=== PATIENT | female | born 1960 | race Caucasian/White ===

== ENCOUNTER → 2017-02-21 | Outpatient (CLI) | payer BC ==
--- NOTE | 2017-02-22 09:43 | RAD ---
EXAM DESCRIPTION: Chest,2 Views CLINICAL HISTORY: ACUTE EXACERBATION OF CHRONIC OBSTRUCTIVE AIRWAYS DISEASE COMPARISON: None available FINDINGS: The cardiomediastinal silhouette is unremarkable. There is mild subsegmental atelectasis or scarring in the left lung base. No airspace consolidation or pleural effusion is seen. The bronchovascular markings are within normal limits, and the lungs are not hyperinflated. There is no pneumothorax or acute fracture. IMPRESSION: No acute findings. Electronically signed by: Fredo Kenney MD 02/22/2017 9:44 AM CDT Workstation: [id number]
== END | disposition home or self-care (01) ==
LOC: YCFC.O 10:03
PROVIDERS: ATTEND Nurse Practitioner Family
DX: J44.1 Chronic obstructive pulmonary disease with (acute) exacerbation (principal); I50.9 Heart failure, unspecified

== ENCOUNTER → 2017-04-04 | Outpatient (CLI) | payer BC | LOC: SL 12:00 | PROVIDERS: ATTEND Nurse Practitioner Family | DX: G47.30 Sleep apnea, unspecified (principal) ==

== ENCOUNTER → 2017-04-10 | Outpatient (CLI) | payer BC ==
[~2017-04-10] MED LIST: ALBUTEROL SULFATE 2.5 MG/3 ML VIAL NEB ONE
== END ==
LOC: RESP 14:10
PROVIDERS: ATTEND Nurse Practitioner Family
DX: J44.9 Chronic obstructive pulmonary disease, unspecified (principal)
CPT/HCPCS: 94060; J7611

== ENCOUNTER → 2018-04-01 | Outpatient (CLI) | payer BC | LOC: LAB.O 17:01 | PROVIDERS: ATTEND Nurse Practitioner Family | DX: J44.1 Chronic obstructive pulmonary disease with (acute) exacerbation (principal); I50.9 Heart failure, unspecified ==

== ENCOUNTER 2019-04-18 11:23 | Emergency (ER) | payer BC ==
[2019-04-18] MEDS ORDERED: IPRATROPIUM/ALBUTEROL 3 ML VIAL NEB ONE (11:35)
--- NOTE | 2019-04-18 12:36 | RAD ---
EXAM: XR Chest, 2 Views CLINICAL HISTORY: 58 years old and is Female; shortness of breath TECHNIQUE: Frontal and lateral views of the chest. COMPARISON: 02/21/2017 FINDINGS: Limitations: None. Lungs: Chronic obstructive changes present with stable scarring. Pleural space: Unremarkable. No pneumothorax. Heart: Stable prominent cardiac shadow. Mediastinum: Unremarkable. Bones/joints: Unremarkable. IMPRESSION: Stable chronic changes. Electronically signed by: Sruthi Harley MD 04/18/2019 12:34 PM CDT
[2019-04-18] MEDS ORDERED: SODIUM CHLORIDE 0.9% 1000ML 1,000 ML IVS ONE (12:57)
--- NOTE | 2019-04-18 14:22 | CT ---
EXAM DESCRIPTION: CTA Chest CLINICAL HISTORY: 58 years Female sob, elevated d-dimer COMPARISON: None TECHNIQUE: Intravenous contrast enhanced axial scans of the chest were obtained. Sagittal and coronal and oblique reformatted images were performed, along with 3-D rotating MIP images. There are scattered scanning and reconstruction artifacts. This exam was performed according to our departmental dose-optimization program, which includes automated exposure control, adjustment of the mA and/or kV according to patient size and/or use of iterative reconstruction technique. FINDINGS: There is fairly good opacification of the pulmonary arterial system, although small peripheral branches are suboptimally evaluated for technical reasons. No sizable filling defects suggesting emboli are seen within major pulmonary arterial branches. There are calcifications in the thoracic aorta, without evidence of focal aneurysm or dissection. Possible coronary artery calcifications. Small to marginal size nonspecific mediastinal and right hilar lymph nodes are visualized, without evidence of significant appearing lymph node enlargement or mass. There is slight pleural thickening bilaterally and minimal linear subsegmental atelectasis or scarring. No evidence of major consolidation, pleural effusion, or pneumothorax. Note is made of greater than 50% anterior compression deformity of the body of T7. This appears to have also been present on a previous chest radiograph dated February 21, 2017. IMPRESSION: No finding suspicious for pulmonary emboli. Slightly technically limited study. Please see other comments above. Electronically signed by: Vasile Jones MD 04/18/2019 2:20 PM CDT
[2019-04-18 14:26] VITALS: BP 166/103; TEMP 97.9; O2SAT 94
[2019-04-18] MEDS ORDERED: levoFLOXacin 500 MG TAB PO ONE (14:29)
[2019-04-18] MEDS ORDERED: predniSONE 20 MG TAB PO ONE (14:29)
--- NOTE | 2019-04-18 14:32 | ED.PDOC ---
History of Present Illness - General Chief Complaint: Respiratory Problem Stated Complaint: shortness of breath Time Seen by Provider: 04/18/19 11:25 Source: patient Exam Limitations: no limitations - History of Present Illness Initial Comments: the patient is a 58-year-old female presenting to emergency room with what appears to be a COPD exacerbation. She has been on low-dose steroids and amoxicillin last for 5 days. She has been using her oxygen intermittently. She does have a cough that is consistent with bronchitis. She is moving air fairly well bilaterally. She does desaturate down to 88% with exertion. She does exhibit some tachypnea. Mild runny nose. No real sore throat. No chest pain. She reports that she quit smoking 1 month ago. Timing/Duration: 1 week Severity: moderate Improving Factors: nothing Worsening Factors: nothing Associated Symptoms: cough, shortness of breath Allergies/Adverse Reactions: Allergies NO KNOWN ALLERGY Allergy (Verified 04/18/19 11:37) Home Medications: Ambulatory Orders Albuterol Inhaler [Ventolin Hfa Inhaler] 108 mcg IN Q4H PRN 04/18/19 Albuterol Sulfate Nebs [Proventil Nebs] 2.5 mg INH Q6H PRN 04/18/19 Amoxicillin & Pot Clavulanate [Augmentin Tab] 875 mg PO BID 04/18/19 Budesonide-Formoterol Fumarate [Symbicort] 1 aer IN DAILY 04/18/19 Cyanocobalamin Inj [Vitamin B-12 Inj] 1,000 mcg IM WKLY 04/18/19 Esomeprazole Magnesium [Nexium] 20 mg PO DAILY 04/18/19 Loratadine 10 mg PO DAILY 04/18/19 Metoprolol Tartrate 25 mg PO BID 04/18/19 Montelukast [Singulair] 10 mg PO DAILY 04/18/19 Nitroglycerin 0.4 mg SL Q5MIN PRN 04/18/19 Potassium Chloride [Potassium Chloride ER] 10 meq PO DAILY 04/18/19 Prednisone [Deltasone] 20 mg PO DAILY 04/18/19 Tiotropium [place] Monohydrate [Spiriva Handihaler] 1 puff IN DAILY 04/18/19 levoFLOXacin [Levaquin] 500 mg PO DAILY #5 tab 04/18/19 predniSONE [Prednisone] 20 mg PO DAILY #14 tab 07/20/19 Review of Systems - Review of Systems Constitutional: States: no symptoms reported EENTM: States: nose congestion Respiratory: States: cough, short of breath, wheezing Cardiology: States: no symptoms reported Gastrointestinal/Abdominal: States: no symptoms reported Genitourinary: States: no symptoms reported Musculoskeletal: States: no symptoms reported Skin: States: no symptoms reported Neurological: States: no symptoms reported Endocrine: States: no symptoms reported All other Systems: No Change from Baseline Past Medical History (General) - Patient Medical History Hx Seizures: No Hx Stroke: No Hx Asthma: Yes Hx of COPD: Yes Hx Cardiac Disorders: Yes - spasms/angina Hx Thyroid Disease: No Hx Diabetes: No Surgical History: other - Vaccination History Hx Tetanus, Diphtheria Vaccination: Yes - Hx Influenza Vaccination: Yes - 2016 Hx Pneumococcal Vaccination: Yes - 2016 Family Medical History - Family History Mother Family History: No Known Physical Exam - Physical Exam General Appearance: Alert, Anxious Eye Exam: bilateral normal Ears, Nose, Throat: hearing grossly normal, normal pharynx, nasal congestion Neck: full range of motion, supple Respiratory: decreased breath sounds, accessory muscle use, rhonchi, wheezing Cardiovascular/Chest: normal peripheral pulses, no edema, tachycardia - mild Peripheral Pulses: radial,right: 2+, radial,left: 2+, dorsalis pedis,right: 2+, dorsalis pedis,left: 2+ Gastrointestinal/Abdominal: non tender - obese, soft Rectal Exam: deferred Back Exam: no CVA tenderness, no vertebral tenderness Extremity: normal range of motion, non-tender, normal inspection, no pedal anabelle ma, normal capillary refill Neurologic: adoption specialist II-XII nml as tested, alert, normal mood/affect, oriented x 3 Skin Exam: normal color Comments: Vital Signs - 24 hr 04/18/19 04/18/19 04/18/19 11:30 11:32 11:48 Temperature 97.8 F Pulse Rate 76 Pulse Rate [ 83 left brachial] Respiratory 44 H 44 H 20 Rate Blood Pressure 120/101 [left brachial] O2 Sat by Pulse 88 L 96 Oximetry 04/18/19 04/18/19 04/18/19 12:00 12:05 12:37 Temperature 98.1 F Pulse Rate 76 Pulse Rate [ 90 86 left brachial] Respiratory 24 20 24 Rate Blood Pressure 135/90 166/86 [left brachial] O2 Sat by Pulse 95 96 95 Oximetry 04/18/19 04/18/19 13:30 14:24 Temperature 97.9 F Pulse Rate Pulse Rate [ 83 79 left brachial] Respiratory 18 24 Rate Blood Pressure 159/96 166/103 [left brachial] O2 Sat by Pulse 96 94 L Oximetry Progress - Progress Progress: 04/18/19 14:33 the patient is a 58-year-old female presenting with what appears to be in acute COPD exacerbation primarily of the bronchitis form. Antibiotic is going to be switched to Levaquin for the next 5 days. We are going to increase her back to 40 mg of prednisone for the next 3 days and then 20 mg a day after that for another 5 days. She does need to increase her DuoNeb treatments to one nebulizer treatment every 3 hours. She needs to keep her oxygen in place at least for the next 3-4 days. She is to follow back up with her primary care doctor later this coming week. ER warnings were given for any significant worsening. Laboratory work, x-ray and CT of the chest were reassuring otherwise. - Results/Orders Results/Orders: chest x-rays consistent with COPD. CT angiogram of the chest felt shown a large pneumonia or pulmonary embolus. EKG shows normal sinus rhythm at 84 bpm. Short [place] interval. Normal axis. No acute ST segment or T-wave changes indicative of ischemia. Laboratory Tests 04/18/19 04/18/19 04/18/19 12:07 12:07 12:07 WBC 8.8 RBC 4.78 Hgb 13.9 Hct 43.3 MCV 90.7 MCH 29.2 MCHC 32.1 L RDW 14.4 Plt Count 179 MPV 8.8 Absolute Neuts (auto) 7.30 H Absolute Lymphs (auto) 1.00 Absolute Monos (auto) 0.30 Absolute Eos (auto) 0.10 Absolute Basos (auto) 0.00 Neutrophils % 83.5 H Lymphocytes % 11.5 L Monocytes % 3.8 Eosinophils % 0.7 L Basophils % 0.5 PT 9.8 INR 0.98 PTT (SP) 23.2 D-Dimer, Quantitative 1.44 H* Sodium 141 Potassium 3.9 Chloride 106 Carbon Dioxide 25 Anion Gap 13.9 BUN 22 H Creatinine 0.89 BUN/Creatinine Ratio 24.7 H Random Glucose 122 H Serum Osmolality 285.9 Lactic Acid Calcium 8.7 Magnesium 1.9 Total Bilirubin 0.5 AST 26 ALT 21 Alkaline Phosphatase 84 Creatine Kinase 223 H* CK-MB (CK-2) 6.8 H* CK-MB (CK-2) % 3.05 Troponin I < 0.02 B-Natriuretic Peptide 84.7 Serum Total Protein 7.0 Albumin 3.7 Globulin 3.3 Albumin/Globulin Ratio 1.1 TSH 2.17 Urine Color Urine Appearance Urine pH Ur Specific Walls Urine Protein Urine Glucose (UA) Urine Ketones Urine Blood Urine Nitrite Urine Bilirubin Urine Urobilinogen Ur Leukocyte Esterase Urine RBC Urine WBC Ur Epithelial Cells Urine Bacteria 04/18/19 04/18/19 12:07 12:36 WBC RBC Hgb Hct MCV MCH MCHC RDW Plt Count MPV Absolute Neuts (auto) Absolute Lymphs (auto) Absolute Monos (auto) Absolute Eos (auto) Absolute Basos (auto) Neutrophils % Lymphocytes % Monocytes % Eosinophils % Basophils % PT INR PTT (SP) D-Dimer, Quantitative Sodium Potassium Chloride Carbon Dioxide Anion Gap BUN Creatinine BUN/Creatinine Ratio Random Glucose Serum Osmolality Lactic Acid 2.1 Calcium Magnesium Total Bilirubin AST ALT Alkaline Phosphatase Creatine Kinase CK-MB (CK-2) CK-MB (CK-2) % Troponin I B-Natriuretic Peptide Serum Total Protein Albumin Globulin Albumin/Globulin Ratio TSH Urine Color Yellow Urine Appearance Sl cloudy Urine pH 5.5 Ur Specific Walls >= 1.030 Urine Protein 30 Urine Glucose (UA) Negative Urine Ketones Trace Urine Blood Negative Urine Nitrite Negative Urine Bilirubin Small H Urine Urobilinogen 1.0 Ur Leukocyte Esterase Negative Urine RBC 0 Urine WBC 0 Ur Epithelial Cells 5-10 Urine Bacteria Rare Departure - Departure Clinical Impression: Bronchitis, chronic obstructive, with exacerbation Disposition: Discharge to Home or Self Care Condition: Fair Departure Forms: ED Discharge - Pt. Copy, Patient Portal Self Enrollment Instructions: DI for Asthma -- Adult Diet: regular diet Activity: increase activity as tolerated Referrals: Rianna Tavarez NP [Primary Care Provider] - 1-2 Weeks Prescriptions: levoFLOXacin [Levaquin] 500 mg PO DAILY #5 tab predniSONE [Prednisone] 20 mg PO DAILY #14 tab Home Medications: Ambulatory Orders Albuterol Inhaler [Ventolin Hfa Inhaler] 108 mcg IN Q4H PRN 04/18/19 Albuterol Sulfate Nebs [Proventil Nebs] 2.5 mg INH Q6H PRN 04/18/19 Amoxicillin & Pot Clavulanate [Augmentin Tab] 875 mg PO BID 04/18/19 Budesonide-Formoterol Fumarate [Symbicort] 1 aer IN DAILY 04/18/19 Cyanocobalamin Inj [Vitamin B-12 Inj] 1,000 mcg IM WKLY 04/18/19 Esomeprazole Magnesium [Nexium] 20 mg PO DAILY 04/18/19 Loratadine 10 mg PO DAILY 04/18/19 Metoprolol Tartrate 25 mg PO BID 04/18/19 Montelukast [Singulair] 10 mg PO DAILY 04/18/19 Nitroglycerin 0.4 mg SL Q5MIN PRN 04/18/19 Potassium Chloride [Potassium Chloride ER] 10 meq PO DAILY 04/18/19 Prednisone [Deltasone] 20 mg PO DAILY 04/18/19 Tiotropium [place] Monohydrate [Spiriva Handihaler] 1 puff IN DAILY 04/18/19 levoFLOXacin [Levaquin] 500 mg PO DAILY #5 tab 04/18/19 predniSONE [Prednisone] 20 mg PO DAILY #14 tab 04/18/19 Additional Instructions: the patient is a 58-year-old female presenting with what appears to be in acute COPD exacerbation primarily of the bronchitis form. Antibiotic is going to be switched to Levaquin for the next 5 days. We are going to increase her back to 40 mg of prednisone for the next 3 days and then 20 mg a day after that for another 5 days. She does need to increase her DuoNeb treatments to one nebulizer treatment every 3 hours. She needs to keep her oxygen in place at least for the next 3-4 days. She is to follow back up with her primary care doctor later this coming week. ER warnings were given for any significant worsening. Laboratory work, x-ray and CT of the chest were reassuring otherwi se.
== END 2019-04-18 14:56 | disposition home or self-care (01) ==
LOC: ER 11:23
DX: J44.1 Chronic obstructive pulmonary disease with (acute) exacerbation (principal); Z79.899 Other long term (current) drug therapy; Z99.81 Dependence on supplemental oxygen; Z87.891 Personal history of nicotine dependence
CPT/HCPCS: 36415; 71046; 71275; 80053; 81001; 82550; 82553; 83605; 83735; 83880; 84443; 84484; 85025; 85379; 85610; 85730; 87040; 87502; 93005; 94640; J7030; J7512; J7620